=== PATIENT | male | born 1955 | race Caucasian/White ===

== ENCOUNTER 2018-02-06 05:51 | Inpatient (IN) | payer MEDICAID, OTHER ==
[2018-02-06 06:34] LABS: ADD MAN DIFF? NO
[2018-02-06] MEDS: SOD CHLORIDE 0.9% 1,000 ML IV ×3 (06:42→15:33)
[2018-02-06] MEDS: ONDANSETRON 4 MG INJ IV ×2 (06:43→10:21)
[2018-02-06] MEDS: HYDROmorphONE 1 MG/ML SYG IV ×2 (06:43→10:22)
[2018-02-06 06:46] LABS: ABNORMAL IP MESSAGE 1; BASOPHIL # 0.1 10^3/ul (0.0-0.1); BASOPHILS % 0.3 % (0.0-2.0); EOSINOPHILS % 0.1 % (0.0-7.0); HEMATOCRIT 40.1 % (42.0-52.0); HEMOGLOBIN 13.2 g/dl (14.0-18.0); LYMPHOCYTES # 2.2 10^3/ul (0.8-2.9); LYMPHOCYTES % 8.6 % (15.0-51.0); MEAN CORPUSCULAR HEMOGLOBIN 29.5 pg (29.0-33.0); MEAN CORPUSCULAR HGB CONC 32.9 g/dl (32.0-37.0); MEAN CORPUSCULAR VOLUME 89.5 fl (82.0-101.0); MEAN PLATELET VOLUME 12.1 fl (7.4-10.4); MONOCYTE # 1.7 10^3/ul (0.3-0.9); MONOCYTES % 6.9 % (0.0-11.0); NEUTROPHIL # 20.9 10^3/ul (1.6-7.5); NEUTROPHILS % 83.4 % (39.0-77.0); PLATELET COUNT 288 10^3/UL (140-415); POSITIVE DIFF @See below; RED BLOOD COUNT 4.48 10^6/ul (4.70-6.10); RED CELL DISTRIBUTION WIDTH 13.6 % (11.5-14.5)
[2018-02-06 06:56] LABS: ALANINE AMINOTRANSFERASE 40 IU/L (13-69); ALBUMIN 3.7 g/dl (3.3-4.9); ALBUMIN/GLOBULIN RATIO 1.27; ALKALINE PHOSPHATASE 99 IU/L (42-121); ANION GAP 18 (8-16); ASPARTATE AMINO TRANSFERASE 32 IU/L (15-46); BILIRUBIN,INDIRECT 1.6 mg/dl (0-1.1); BILIRUBIN,TOTAL 1.6 mg/dl (0.2-1.3); BLOOD UREA NITROGEN 22 mg/dl (7-20); CALCIUM 9.5 mg/dl (8.4-10.2); CARBON DIOXIDE 30 mmol/L (21-31); CHLORIDE 101 mmol/L (97-110); CREATININE 0.88 mg/dl (0.61-1.24); GLUCOSE 184 mg/dl (70-220); LIPASE 99 U/L (23-300); POTASSIUM 4.2 mmol/L (3.5-5.1); SODIUM 145 mmol/L (135-144); TOTAL PROTEIN 6.6 g/dl (6.1-8.1)
[2018-02-06] MEDS: SOD CHLORIDE 0.9% 100 ML (08:23)
[2018-02-06] MEDS: IOHEXOL 300MG/ML 150 ML BTL (08:23)
[2018-02-06] MEDS: ERTAPENEM SODIUM 1 GM in SOD CHLORIDE 0.9% 100 ML IVPB (09:35)
[2018-02-06] MEDS ORDERED: ONDANSETRON 4 MG INJ IV (11:00)
[2018-02-06 11:16] LABS: PROTIME 14.4 Sec (11.9-14.9); PT RATIO 1.1
[2018-02-06 11:17] LABS: PARTIAL THROMBOPLASTIN TIME 34.9 Sec (25.0-35.0)
[2018-02-06] MEDS ORDERED: IBUPROFEN 600 MG TAB PO (12:30)
[2018-02-06] MEDS ORDERED: NACL 0.9% 3 ML SYG IV (12:30)
[2018-02-06] MEDS: ACETAMINOPHEN 325 MG TAB PO (12:43)
[2018-02-06] MEDS: PIPER-TAZO 3.375 GM IV (PMX) 100 ML IVPB ×2 (15:33→21:18)
[2018-02-06] MEDS: HYDROCODONE/APAP (5/325) TAB PO (18:20)
[2018-02-06] MEDS: INSULIN ASPART [NOVOLOG] 3 ML PEN SC ×2 (18:28→21:00)
[2018-02-06] MEDS ORDERED: GLUCAGON 1 MG INJ IM (18:30)
[2018-02-06] MEDS ORDERED: DEXTROSE 50% 50 ML SYRINGE IV ×2 (18:30)
[2018-02-06] MEDS ORDERED: GLUCOSE GEL 15 GRAM TUBE BUCCAL (18:30)
[2018-02-06] MEDS ORDERED: GLUCOSE GEL 15 GRAM TUBE PO ×2 (18:30)
[2018-02-06] MEDS: LABETALOL 100 MG TAB PO (21:17)
[2018-02-07] MEDS: ACCU-CHEK XX (02:00)
[2018-02-07] MEDS: PIPER-TAZO 3.375 GM IV (PMX) 100 ML IVPB ×3 (05:27→21:32)
[2018-02-07] MEDS: HYDROCODONE/APAP (5/325) TAB PO ×2 (05:27→18:26)
[2018-02-07 06:02] LABS: ADD MAN DIFF? NO
[2018-02-07 06:07] LABS: ABNORMAL IP MESSAGE 1; BASOPHIL # 0.1 10^3/ul (0.0-0.1); BASOPHILS % 0.2 % (0.0-2.0); EOSINOPHILS # 0.1 10^3/ul (0.0-0.5); EOSINOPHILS % 0.4 % (0.0-7.0); HEMATOCRIT 35.6 % (42.0-52.0); HEMOGLOBIN 11.8 g/dl (14.0-18.0); LYMPHOCYTES # 2.3 10^3/ul (0.8-2.9); LYMPHOCYTES % 9.2 % (15.0-51.0); MEAN CORPUSCULAR HGB CONC 33.1 g/dl (32.0-37.0); MEAN CORPUSCULAR VOLUME 90.6 fl (82.0-101.0); MONOCYTE # 1.4 10^3/ul (0.3-0.9); MONOCYTES % 5.5 % (0.0-11.0); NEUTROPHIL # 20.8 10^3/ul (1.6-7.5); NEUTROPHILS % 83.7 % (39.0-77.0); PLATELET COUNT 254 10^3/UL (140-415); POSITIVE DIFF @See below; RED BLOOD COUNT 3.93 10^6/ul (4.70-6.10); RED CELL DISTRIBUTION WIDTH 13.7 % (11.5-14.5)
[2018-02-07 06:07] LABS: WHITE BLOOD COUNT 24.9 10^3/ul (4.8-10.8)
[2018-02-07 06:38] LABS: ALANINE AMINOTRANSFERASE 195 IU/L (13-69); ALBUMIN 2.8 g/dl (3.3-4.9); ALKALINE PHOSPHATASE 313 IU/L (42-121); ANION GAP 11 (8-16); ASPARTATE AMINO TRANSFERASE 124 IU/L (15-46); BILIRUBIN,INDIRECT 1.6 mg/dl (0-1.1); BILIRUBIN,TOTAL 1.6 mg/dl (0.2-1.3); BLOOD UREA NITROGEN 20 mg/dl (7-20); CARBON DIOXIDE 30 mmol/L (21-31); CHLORIDE 104 mmol/L (97-110); CREATININE 0.91 mg/dl (0.61-1.24); GLUCOSE 140 mg/dl (70-220); POTASSIUM 4.4 mmol/L (3.5-5.1); SODIUM 141 mmol/L (135-144); TOTAL PROTEIN 5.6 g/dl (6.1-8.1)
[2018-02-07 07:49] LABS: HEMOGLOBIN A1C 7.5 % (0-5.9)
[2018-02-07] MEDS: LABETALOL 100 MG TAB PO ×4 (08:28→21:32)
[2018-02-07] MEDS: ENOXAPARIN 30 MG/0.3 ML SYG SC (08:29)
[2018-02-07] MEDS: INSULIN ASPART [NOVOLOG] 3 ML PEN SC ×4 (08:30→21:00)
[2018-02-07] MEDS: LISINOPRIL 20 MG TAB PO (08:37)
[2018-02-07] MEDS: LIDOCAINE 1% (MPF) 5 ML VIAL (15:06)
[2018-02-07] MEDS: FENTAnyl 50 MCG/ML VIAL (15:06)
[2018-02-07] MEDS: MIDAZOLAM 1 MG/ML 2 ML INJ (15:06)
[2018-02-07] MEDS: DEXTROSE 5%-0.45% NACL 1,000 ML IV (16:11)
[2018-02-08] MEDS: ACCU-CHEK XX (02:00)
[2018-02-08] MEDS: DEXTROSE 5%-0.45% NACL 1,000 ML IV ×3 (03:20→22:08)
[2018-02-08 04:29] LABS: ADD MAN DIFF? NO
[2018-02-08 04:33] LABS: BASOPHILS % 0.2 % (0.0-2.0); EOSINOPHILS # 0.5 10^3/ul (0.0-0.5); HEMATOCRIT 31.5 % (42.0-52.0); HEMOGLOBIN 10.5 g/dl (14.0-18.0); LYMPHOCYTES # 2.2 10^3/ul (0.8-2.9); LYMPHOCYTES % 13.5 % (15.0-51.0); MEAN CORPUSCULAR HGB CONC 33.3 g/dl (32.0-37.0); MEAN PLATELET VOLUME 12.1 fl (7.4-10.4); MONOCYTES % 6.2 % (0.0-11.0); NEUTROPHIL # 12.5 10^3/ul (1.6-7.5); NEUTROPHILS % 76.6 % (39.0-77.0); PLATELET COUNT 249 10^3/UL (140-415); RED CELL DISTRIBUTION WIDTH 13.9 % (11.5-14.5)
[2018-02-08 04:33] LABS: WHITE BLOOD COUNT 16.4 10^3/ul (4.8-10.8)
[2018-02-08 04:55] LABS: ALANINE AMINOTRANSFERASE 111 IU/L (13-69); ALBUMIN 2.6 g/dl (3.3-4.9); ALBUMIN/GLOBULIN RATIO 0.92; ALKALINE PHOSPHATASE 223 IU/L (42-121); ANION GAP 9 (8-16); ASPARTATE AMINO TRANSFERASE 48 IU/L (15-46); BILIRUBIN,INDIRECT 1.2 mg/dl (0-1.1); BILIRUBIN,TOTAL 1.2 mg/dl (0.2-1.3); BLOOD UREA NITROGEN 17 mg/dl (7-20); CALCIUM 8.2 mg/dl (8.4-10.2); CARBON DIOXIDE 29 mmol/L (21-31); CHLORIDE 104 mmol/L (97-110); CREATININE 0.83 mg/dl (0.61-1.24); GLUCOSE 127 mg/dl (70-220); POTASSIUM 3.6 mmol/L (3.5-5.1); SODIUM 138 mmol/L (135-144); TOTAL PROTEIN 5.4 g/dl (6.1-8.1)
[2018-02-08 04:56] LABS: PROTIME 14.4 Sec (11.9-14.9); PT RATIO 1.1
[2018-02-08] MEDS: PIPER-TAZO 3.375 GM IV (PMX) 100 ML IVPB ×3 (05:18→22:08)
[2018-02-08] MEDS: LABETALOL 100 MG TAB PO ×3 (07:43→20:07)
[2018-02-08] MEDS: HYDROCODONE/APAP (5/325) TAB PO ×2 (07:44→20:08)
[2018-02-08] MEDS: LISINOPRIL 20 MG TAB PO (07:47)
[2018-02-08] MEDS: ENOXAPARIN 30 MG/0.3 ML SYG SC (07:51)
[2018-02-08] MEDS: INSULIN ASPART [NOVOLOG] 3 ML PEN SC ×4 (07:58→20:10)
[2018-02-08] MEDS: hydrALAzine 20 MG INJ IV (21:14)
[2018-02-09] MEDS: ACCU-CHEK XX (02:00)
[2018-02-09] MEDS: DEXTROSE 5%-0.45% NACL 1,000 ML IV (06:00)
[2018-02-09] MEDS: PIPER-TAZO 3.375 GM IV (PMX) 100 ML IVPB ×3 (06:07→22:14)
[2018-02-09] MEDS: INSULIN ASPART [NOVOLOG] 3 ML PEN SC ×4 (08:00→20:18)
[2018-02-09] MEDS: LISINOPRIL 20 MG TAB PO (08:01)
[2018-02-09] MEDS: LABETALOL 100 MG TAB PO ×3 (08:02→20:15)
[2018-02-09] MEDS: ENOXAPARIN 30 MG/0.3 ML SYG SC (08:08)
[2018-02-09 10:22] LABS: ADD MAN DIFF? NO
[2018-02-09 10:27] LABS: BASOPHILS % 0.3 % (0.0-2.0); EOSINOPHILS # 0.6 10^3/ul (0.0-0.5); EOSINOPHILS % 5.5 % (0.0-7.0); HEMATOCRIT 35.2 % (42.0-52.0); HEMOGLOBIN 11.9 g/dl (14.0-18.0); LYMPHOCYTES # 1.7 10^3/ul (0.8-2.9); LYMPHOCYTES % 16.5 % (15.0-51.0); MEAN CORPUSCULAR HGB CONC 33.8 g/dl (32.0-37.0); MEAN CORPUSCULAR VOLUME 88.7 fl (82.0-101.0); MEAN PLATELET VOLUME 10.9 fl (7.4-10.4); MONOCYTE # 0.4 10^3/ul (0.3-0.9); MONOCYTES % 4.2 % (0.0-11.0); NEUTROPHIL # 7.6 10^3/ul (1.6-7.5); NEUTROPHILS % 73.1 % (39.0-77.0); PLATELET COUNT 334 10^3/UL (140-415); RED BLOOD COUNT 3.97 10^6/ul (4.70-6.10); RED CELL DISTRIBUTION WIDTH 13.3 % (11.5-14.5)
[2018-02-09 10:27] LABS: WHITE BLOOD COUNT 10.4 10^3/ul (4.8-10.8)
[2018-02-09 10:53] LABS: ALANINE AMINOTRANSFERASE 73 IU/L (13-69); ALKALINE PHOSPHATASE 195 IU/L (42-121); ANION GAP 11 (8-16); ASPARTATE AMINO TRANSFERASE 24 IU/L (15-46); BLOOD UREA NITROGEN 8 mg/dl (7-20); CALCIUM 8.6 mg/dl (8.4-10.2); CARBON DIOXIDE 28 mmol/L (21-31); CHLORIDE 102 mmol/L (97-110); CREATININE 0.78 mg/dl (0.61-1.24); GLUCOSE 140 mg/dl (70-220); POTASSIUM 3.5 mmol/L (3.5-5.1); SODIUM 137 mmol/L (135-144)
[2018-02-09] MEDS: hydrALAzine 20 MG INJ IV (14:50)
[2018-02-09] MEDS: HYDROCODONE/APAP (5/325) TAB PO (20:15)
[2018-02-10] MEDS: hydrALAzine 20 MG INJ IV (01:41)
[2018-02-10] MEDS: ACCU-CHEK XX (01:42)
[2018-02-10] MEDS: PIPER-TAZO 3.375 GM IV (PMX) 100 ML IVPB (05:57)
[2018-02-10] MEDS: INSULIN ASPART [NOVOLOG] 3 ML PEN SC (08:00)
[2018-02-10] MEDS: LABETALOL 100 MG TAB PO (08:09)
[2018-02-10] MEDS: LISINOPRIL 20 MG TAB PO (08:09)
[2018-02-10] MEDS: ENOXAPARIN 30 MG/0.3 ML SYG SC (08:13)
== END 2018-02-10 11:55 | disposition home or self-care (01) | DRG 446 ==
LOC: E/R 05:51 → 2NE 10:47
PROC: 0F9430Z Drainage of Gallbladder with Drainage Device, Percutaneous Approach (ICD-10-PCS; principal; 2018-02-07)
DX: K81.0 Acute cholecystitis (principal); E11.9 Type 2 diabetes mellitus without complications; Z86.73 Personal history of transient ischemic attack (TIA), and cerebral infarction without residual deficits; F10.21 Alcohol dependence, in remission; F03.90 Unspecified dementia, unspecified severity, without behavioral disturbance, psychotic disturbance, mood disturbance, and anxiety; Z87.891 Personal history of nicotine dependence; E80.6 Other disorders of bilirubin metabolism
CPT/HCPCS: 36415; 71045; 74177; 74181; 75989; 76705; 77012; 80053; 82962; 83036; 83690; 85025; 85610; 85730; 87070; 87075; 93005; 93306; 96374; 96375; 96376; 99285-25

== ENCOUNTER 2018-02-14 19:50 | Emergency (ER) | payer MEDICAID ==
[2018-02-14] MEDS: ONDANSETRON (ODT) 4 MG TAB ODT (21:55)
[2018-02-14] MEDS ORDERED: HYDROCODONE/APAP (10/325) TAB PO (22:00)
== END 2018-02-14 21:50 | disposition home or self-care (01) ==
LOC: E/R 21:50
DX: G89.18 Other acute postprocedural pain (principal); I10 Essential (primary) hypertension; E11.9 Type 2 diabetes mellitus without complications; Z79.82 Long term (current) use of aspirin; Z79.84 Long term (current) use of oral hypoglycemic drugs; Z87.891 Personal history of nicotine dependence
CPT/HCPCS: 99283; Z7502